=== PATIENT | female | born 1965 | race African-American/Black ===

== ENCOUNTER 2017-03-21 22:09 | Emergency (ER) | payer MEDICAID, OTHER ==
[~2017-03-21] VITALS: Ht 160 cm; Wt 90.0 kg
[~2017-03-21 22:09] MED LIST: ASPI-99 PO; ATOR20TA42 PO; CYCL-36 PO; GABA300 PO; NAPR-576 PO; TOPI25 PO
[2017-03-21 22:11] VITALS: BP 138/79; PULSE 108; RESP 20; TEMP 98.4; O2SAT 99
--- NOTE | 2017-03-21 23:28 | PD ---
HPI Chief Complaint: Cold / Flu Symptoms Time Seen by Provider: 23:18 Travel History International Travel<30 days: No Contact w/Intl Traveler<30days: No Traveled to known affect area: No History of Present Illness HPI The patient is a 51 year old female who presents to the [facility] emergency department with a history of congestion that began yesterday. She has a postnasal drip with shortness of breath. She has had a cough. She has not seen the mucus. She denies having any fevers or chills. She denies having any chest congestion. She reports that she's had a clear rhinorrhea associated with this. Review of systems otherwise, she denies having any neck pain, chest pain, shortness of breath, abdominal pain, vomiting, diarrhea, urinary symptoms , or neurologic symptoms. She reports that her stool has been slightly softer than usual today. [facility] Past Medical History Narrative Medical The patient's past medical history is significant for high cholesterol, right shoulder injury, endometriosis. High Cholesterol: Yes Diminished Hearing: No Musculoskeletal: Yes (RT. SHOULDER TEAR) Reproductive: Yes (ENDOMETRIOSIS) Tetanus Vaccination: Unknown Influenza Vaccination: No ?: Not : 3 Para: 2 Miscarriage: 1 Ovarian Cysts: Yes Tubal Ligation: Yes (ENDOMETRIAL ABLATION) Past Surgical History Narrative Surgical The patient's past surgical history is significant for right shoulder sx, endometrial ablation. Gynecologic Surgery: Yes (ENDOMEATRIAL ABLATION) Social History Alcohol Use: No Tobacco Use: No Substance Use: No Allergies-Medications (Allergen,Severity, Reaction): Coded Allergies: penicillin G (Unverified Allergy, Severe, Hives, 03/21/17) Reported Meds & Prescriptions Reported Meds & Active Scripts Active Prednisone 20 Mg Tab 20 Mg PO BID 3 Days Mucus Relief ER (Guaifenesin) 600 Mg Tab 600 Mg PO BID PRN 5 Days Sudafed Review of Systems Except as stated in HPI: all other systems reviewed are Neg General / Constitutional: No: Fever Eyes: No: Visual changes HENT: Positive: Sore Throat, Congestion, No: Headaches, Rhinorrhea Cardiovascular: No: Chest Pain or Discomfort Respiratory: Positive: Cough, No: Shortness of Breath Gastrointestinal: Positive: Nausea, Changes in Bowel Habits (softer stool today.), No: Vomiting, Diarrhea, Abdominal Pain Genitourinary: No: Dysuria Musculoskeletal: No: Pain Skin: No Rash Neurologic: No: Weakness Psychiatric: No: Depression Endocrine: No: Polydipsia Hematologic/Lymphatic: No: Easy Bruising Physical Exam Narrative General: The patient is a well-developed well-nourished female in no acute distress. Head and Neck exam: Head is normocephalic atraumatic. Eyes: EOMI, pupils are equal round and reactive to light. Nose: Midline septum with erythematous edematous nasal mucosa and a clear nasal discharge. Mouth: Dentition unremarkable. Moist mucus membranes. Posterior oropharynx is mildly erythematous. No tonsillar hypertrophy. Uvula midline. Airway patent. Neck: No palpable lymphadenopathy. No nuchal rigidity. No thyromegaly. Cardiovascular: Regular rate and rhythm without murmurs, gallops, or rubs. Lungs: Clear to auscultation bilaterally. No wheezes, rhonchi, or rales. Abdomen: Soft, without tenderness to palpation in all 4 quadrants of the abdomen. No guarding, rebound, or rigidity. Normal bowel sounds are audible. No tenderness on palpation of McBurney's point. Extremities: No clubbing, cyanosis, or edema. No calf tenderness on palpation. Back: No costovertebral angle tenderness to palpation. Neurologic Exam: Grossly nonfocal. Skin Exam: No rash noted. Intact skin that is warm and dry. Data Data Last Documented VS Vital Signs Date Time Temp Pulse Resp B/P (MAP) Pulse Ox O2 Delivery O2 Flow Rate FiO2 03/21/17 23:18 100 Room Air 03/21/17 22:11 98.4 108 20 138/79 (98) Orders Orders Chest, Pa & Lat (03/21/17 23:32) Ed Discharge Order (03/22/17 00:09) [facility] Medical Decision Making Medical Screen Exam Complete: Yes Emergency Medical Condition: Yes Medical Record Reviewed: Yes Interpretation(s) Last Impressions Chest X-Ray 03/21/17 6417 Signed Impressions: Service Date/Time: Tuesday, March 21, 2017 23:42 - CONCLUSION: No acute disease. There is no evidence of pneumonia. Anjel Paz MD Differential Diagnosis Seasonal allergies, versus acute sinusitis, versus upper respiratory infection, versus pneumonia Narrative Course During the course of the patients emergency department visit, the patients history, examination, and differential diagnosis were reviewed with the patient. The patient was placed on a color television console monitor with oximetry and frequent blood pressure monitoring. The patient had a chest x-ray ordered. Radiology studies were reviewed and remarkable for a chest x-ray that shows no acute abnormality, no evidence of infiltrate or pneumonia. The patient will be discharged home with a prescription for guaifenesin, a mucolytic for her postnasal drip, and a short course of prednisone. The patient is resting comfortably and feels better, is alert and in no distress. The patients results and examination findings were discussed with the patient. The repeat examination is unremarkable and benign. The history, exam, diagnostic testing, and current condition do not suggest any significant pathology to warrant further testing, continued ED treatment, admission, or surgical evaluation at this point. The vital signs have been stable. The patient does not have uncontrollable pain, intractable vomiting, or other significant symptoms. The patient's condition is stable and appropriate for discharge. The patient will pursue further outpatient evaluation with a primary care physician or other designated or consulting physician as indicated in the discharge instructions. The patient expressed understanding and was agreeable with this plan. Diagnosis Primary Impression: Postnasal drip Additional Impression: Upper respiratory infection Qualified Codes: J06.9 - Acute upper respiratory infection, unspecified; B97.89 - Other viral agents as the cause of diseases classified elsewhere Referrals: Primary Care Physician 1 week Patient Instructions: General Instructions, Postnasal Drip (GEN), Upper Respiratory Infection (ED) Med/Other Pt SpecificInfo: Prescription(s) given Scripts Prednisone (Prednisone) 20 Mg Tab 20 MG PO BID for 3 Days, #6 TAB 0 Refills Prov: Sarahi Rubalcava MD 03/21/17 Guaifenesin ER (Mucus Relief ER) 600 Mg Tab 600 MG PO BID Y for CHEST CONGESTION AND/OR COUGH for 5 Days, #10 TAB 0 Refills Prov: Sarahi Rubalcava MD 03/21/17 Disposition: 01 DISCHARGE HOME Condition: Stable Sarahi Rubalcava MD Mar 21, 2017 23:28
[2017-03-21] MEDS ORDERED: PRED20 PO (23:32)
[2017-03-21] MEDS ORDERED: GUAI600T11 PO (23:32)
--- NOTE | 2017-03-21 23:54 | RADRPT ---
EXAM DATE/TIME: 03/21/2017 23:42 [place] COMPARISON: No previous studies available for comparison. INDICATIONS : Cough, congestion. MEDICAL HISTORY : Hypercholesterolemia. SURGICAL HISTORY : None. ENCOUNTER: Initial ACUITY: 2 days PAIN SCORE: 0/10 LOCATION: Bilateral chest FINDINGS: PA and lateral views of the chest demonstrate the lungs to be symmetrically aerated without evidence of mass, infiltrate or effusion. The cardiomediastinal contours are unremarkable. Osseous structure s are intact. CONCLUSION: No acute disease. There is no evidence of pneumonia. Anjel Paz MD on March 21, 2017 at 23:52 Board Certified Radiologist. This report was verified electronically.
== END 2017-03-22 00:32 | disposition home or self-care (01) ==
LOC: NEPE 22:09
DX: J06.9 Acute upper respiratory infection, unspecified (principal); R11.0 Nausea; E78.00 Pure hypercholesterolemia, unspecified; Z88.0 Allergy status to penicillin
CPT/HCPCS: 71020; 99284